=== PATIENT | female | born 1985 | race Caucasian/White ===

== ENCOUNTER 2022-10-05 15:00 | Inpatient (IN) | payer SELFPAY ==
[~2022-10-05] VITALS: Ht 162 cm; Wt 77.9 kg
[2022-10-05] VITALS (11 sets, daily range): BP systolic 129–144; BP diastolic 76–91
[~2022-10-05 15:00] MED LIST: ACET-93 PO; IBUP-844 PO
[2022-10-05] MEDS ORDERED: AMPICILLIN FOR IV USE 2,000 MG in NS (IVPB) 50 ML IV SCH (15:02)
--- NOTE | 2022-10-05 15:13 | History & Physical-OB ---
OB - Chief Complaint & HPI Date/Time Date of Admission: Date of Admission: Oct 05, 2022 at 15:00 Date seen by a Provider: Oct 05, 2022 Time Seen by a Provider: 15:00 Chief Complaint/History OB-Reason for Admission/Chief: Onset of Labor Hx : 10 Hx Para: 7 Expected Date of Delivery: Oct 17, 2022 Gestational Age in Weeks: 38 Gestational Age in Days: 2 Allergies and Home Medications Allergies Coded Allergies: No Known Drug Allergies (Unverified , 07/29/21) Patient Home Medication List Home Medication List Reviewed: Yes Acetaminophen (Acetaminophen) 500 Mg Tablet, 1,000 MG PO Q6HR Prescribed by: Romana Hare on 07/30/21 104 Last Action: Reviewed Ibuprofen (Ibu) 600 Mg Tablet, 600 MG PO Q6H Prescribed by: Romana Hare on 07/30/211043 Last Action: Reviewed OB - History Hx of Present Care: Yes Ultrasounds: Normal mid trimester US Obstetrical Complications: None Medical Complications: None Information Induced Hypertension: No Maternal Gestational Diabetes: No Hemorrhage: No Obstetrical History Hx : 10 Hx Para: 7 Hx # Term Pregnancies: 7 Hx # Pregnancies: 0 Number of Living Children: 7 Hx Termination: No Hx Total # of Abortions (Spona: 2 Hx Multiple Gestation: No Hx Ectopic : No Hx Stillbirth: No Hx Complication: No Hx Induced Hypertens: No Hx Maternal Gestational Diabet: No Hx Hemorrhage: No Delivery History Hx Dystocia: No Hx Forceps Assisted Delivery: No Hx Vacuum Extraction Assisted: No Hx Placenta Abnormality: No Hx Distress: No Hx Large For Gestational Age I: No Hx Small for Gestational Age I: No Hx Section: No Hx Vaginal Delivery Post C-Sec: No Hx Blood Disorders: No Adverse Rxn to Tranfusion: No Patient Past Medical History none Social History/Family History Alcohol Use: Denies Use Smoking Cessation: Never smoker Immunizations Influenza Vaccine Up-to-Date: No; Not Current Hepatitis A: No Hepatitis B: No Rubella: not immune RPR/VDRL: Negative GBS Status: Positive HBsAG: Negative OB - Admission Exam Physical Exam HEENT: NCAT Heart: Rhythm Normal Lungs: Clear Abdomen: Gravid Extremities: Normal Cervical Dilatation: 5cm Effacement: Other (90%) Station: -1 Membranes: Intact Heart Rate: 140's Accelerations: Accelerations Present Decelerations: No Decelerations Short Term Variability: Present Agriculture Laborer Variability: Average (6-25) Contractions on Admission: 6-10 Minutes Apart Intensity: Mild OB - Assessment/Plan/Diagnosis Assessment Assessment: active labor, group B positive strep Admission Dx IUP# 38w2 labor AMA GBS+ Admission Status: Inpatient Order (span 2 midnights) Reason for Inpatient Admission: IUP @ 38w2d GBS+ Plan Plan: Expectant Management Copy Copies To 1: NORBERT SERVIN VICTORIA A DO Oct 05, 2022 15:13
[2022-10-05] MEDS ORDERED: LIDOCAINE 1% INJ 10 ML VIAL INJ PRN (15:15)
[2022-10-05] MEDS ORDERED: MINERAL OIL 30 ML UDC TOP PRN (15:15)
[2022-10-05] MEDS ORDERED: LIDOCAINE 1% INJ 20 ML VIAL IJ PRN (15:15)
[2022-10-05] MEDS: D5 LR IV SOLUTION 1,000 ML IV SCH (15:40)
[2022-10-05 16:07] LABS: BASOPHILS % (AUTO) 0 % (0-10); EOSINOPHILS # (AUTO) 0.1 10^3/uL (0.0-0.3); EOSINOPHILS % (AUTO) 2 % (0-10); HEMATOCRIT 36 % (35-52); HEMOGLOBIN 11.9 g/dL (11.5-16.0); LYMPHOCYTES # (AUTO) 1.7 10^3/uL (1.0-4.0); LYMPHOCYTES % (AUTO) 20 % (12-44); MEAN CORPUSCULAR HEMOGLOBIN 26 pg (25-34); MEAN CORPUSCULAR HGB CONC 33 g/dL (32-36); MEAN CORPUSCULAR VOLUME 80 fL (80-99); MEAN PLATELET VOLUME 9.4 fL (9.0-12.2); MONOCYTES # (AUTO) 0.6 10^3/uL (0.0-1.0); MONOCYTES % (AUTO) 7 % (0-12); NEUTROPHILS # (AUTO) 6.1 10^3/uL (1.8-7.8); NEUTROPHILS % (AUTO) 71 % (42-75); PLATELET COUNT 210 10^3/uL (130-400); WHITE BLOOD COUNT 8.7 10^3/uL (4.3-11.0)
[2022-10-05] MEDS: AMPICILLIN FOR IV USE 1,000 MG in NS (IVPB) 50 ML IV SCH ×2 (19:33→23:34)
[2022-10-05] MEDS ORDERED: OXYTOCIN PRE-MIX DRIP 500 ML IV ONE (19:35)
--- NOTE | 2022-10-05 20:09 | OB Triage Report ---
Standard Progress Note Progress Notes/Assess & Plan Date Seen by a Provider: Oct 05, 2022 Time Seen by a Provider: 20:00 Expected Date of Delivery: Oct 17, 2022 Gestational Age in Weeks: 38 Gestational Age in Days: 2 LMP/CARROL Comment: Patient still carlito. FHR 158 cat 1 CVX 5-6/90/-1 AROM scant fluid TOCOs Q7-10 min Progress/Assessment & Plan Continue with expectant management MARINE SALDANA DO Oct 05, 2022 20:09
[2022-10-05] MEDS ORDERED: OXYTOCIN PRE-MIX DRIP 500 ML IV SCH (21:45)
[2022-10-05] MEDS ORDERED: CATHETER FLUSH 10 ML SYR IV SCH (22:00)
[2022-10-06] VITALS (20 sets, daily range): BP systolic 128–179; BP diastolic 60–101
[2022-10-06] MEDS: D5 LR IV SOLUTION 1,000 ML IV SCH (00:29)
[2022-10-06] MEDS ORDERED: ONDANSETRON 4 MG/2 ML (SDV) Z0FRAN ONE (00:48)
[2022-10-06] MEDS ORDERED: ONDANSETRON 4 MG/2 ML (SDV) Z0FRAN IVP ONE (01:00)
[2022-10-06] MEDS ORDERED: TRANEXAMIC ACID 100 MG/ML 10 ML INJECTION ONE (01:03)
[2022-10-06] MEDS ORDERED: ACETAMINOPHEN 500 MG TAB (TYLENOL) PO SCH (01:15)
[2022-10-06] MEDS ORDERED: DIBUCAINE 1% OINTMENT 28 GM TUBE TOP PRN (01:15)
[2022-10-06] MEDS ORDERED: BENZOCAINE/MENTHOL (DERMOPLAST) 56 ML CAN TP PRN (01:15)
[2022-10-06] MEDS ORDERED: WITCH HAZEL(TUCKS) 40 EA JAR TOP PRN (01:15)
[2022-10-06] MEDS ORDERED: NALOXONE 0.4 MG/ML 1 ML (NARCAN) VIAL IV PRN (01:15)
[2022-10-06] MEDS ORDERED: IBUPROFEN 800 MG (MOTRIN) TAB PO SCH (01:15)
[2022-10-06] MEDS ORDERED: MEASLES,MUMPS,RUBELLA 1 EA INJ SQ ONE (01:15)
[2022-10-06] MEDS ORDERED: OXYTOCIN PRE-MIX DRIP 500 ML IV SCH (01:15)
[2022-10-06] MEDS ORDERED: TETANUS,DIPTH,PERTUSS P/F (BOOSTRIX) 0.5 ML VIAL IM ONE (01:15)
--- NOTE | 2022-10-06 01:20 | OB Labor & Delivery Record ---
Vag Delivery Note Vag Delivery Note Date of Delivery: 10/06/22 Preoperative Diagnosis: Conchita Kim is a (36 /Para 10 / 7, Gestational Age (wks)[id number] [ ] Postoperative Diagnosis: Same Surgeon: MARINE SALDANA Annual Campaign Manager: [] Anesthesia: none Delivery Type: Spontaneous vaginal delivery Findings: [] Liveborn male , apgars 8/9, weight Pending Lacerations: None Intact placenta with 3 vessel cord. No nuchal cord, body cord or shoulder dystocia Estimated Blood Loss:300 ml Complications: None Condition: Stable Description of Procedure: The patient is a 36 year old female who presented With complaint of contractions. In the office she was 5 cm dilated. She was GBS positive.. She was admitted and informed consent was obtained. Her membranes were ruptured with scant fluid. She is carlito about every 7 to 10 minutes she dilated to 6 cm. Pitocin was started she continued onward until she was complete. She progressed to complete dilatation and began to push. She was then set up for delivery. The infant's head was delivered atraumatically in the FINN position. The shoulders and remainder of the 's body were then delivered without difficulty. Upon delivery, the was vigorous and placed on maternal chest and the mouth and nares were bulb suctioned. After a 60 seconds the cord was doubly clamped and cut and the infant remained on maternal chest. The placenta with 3-vessel cord delivered spontaneously and intact and there was found to be minimal bleeding.~ Vigorous fundal massage was performed and the fundus was found to be firm. IV oxytocin was given. Examination of the vagina and perineum revealedNo lacerations.. All sponge, instrument and needle counts were correct. Mom and baby were both in stable condition in the labor suite.Quantitative blood loss was 300 cc Vitals - Labs Vital Signs - I&O Vital Signs Date Time Temp Pulse Resp B/P (MAP) Pulse Ox O2 Delivery O2 Flow Rate FiO2 10/05/22 19:35 37.0 77 18 129/76 (93) Room Air 10/05/22 15:05 37.2 97 18 96 Room Air Labs Laboratory Tests 10/05/22 15:23: White Blood Count 8.7, Red Blood Count 4.52, Hemoglobin 11.9, Hematocrit 36, Diane n Corpuscular Volume 80, Mean Corpuscular Hemoglobin 26, Mean Corpuscular Hemoglobin Concent 33, Red Cell Distribution Width 15.1H, Platelet Count 210, Mean Platelet Volume 9.4, Immature Granulocyte % (Auto) 1, Neutrophils (%) (Auto) 71, Lymphocytes (%) (Auto) 20, Monocytes (%) (Auto) 7, Eosinophils (%) (Auto) 2, Basophils (%) (Auto) 0, Neutrophils # (Auto) 6.1, Lymphocytes # (Auto) 1.7, Monocytes # (Auto) 0.6, Eosinophils # (Auto) 0.1, Basophils # (Auto) 0.0, Immature Granulocyte # (Auto) 0.1, Syphilis Total Antibody Negative MARINE SALDANA 16, 2023 01:20
[2022-10-06] MEDS ORDERED: DOCU100C37 PO (01:22)
[2022-10-06] MEDS ORDERED: DIBU30OI TOP (01:22)
[2022-10-06] MEDS ORDERED: PNV1TABL67 PO (01:22)
[2022-10-06] MEDS ORDERED: BENZ78AE5 TP (01:22)
[2022-10-06] MEDS ORDERED: WTCHGPD TOP (01:22)
[2022-10-06] MEDS ORDERED: CATHETER FLUSH 10 ML SYR IV SCH (06:00)
[2022-10-06] MEDS ORDERED: PRENATAL VITAMIN 1 EA TAB PO SCH (07:00)
--- NOTE | 2022-10-06 07:41 | Postpartum Progress Note ---
Note Note Day # 1 Subjective: Patient is without complaints. Ambulating, voiding. Tolerating a regular diet without nausea or vomiting. Normal lochia. Pain is well controlled with oral pain medications. . [] Objective: [] Physical Exam: General - Alert and oriented, no apparent distress Breasts are symmetrical no erythema edema or engorgement Abdomen - Soft, appropriately tender to palpation, non-distended, fundus firm at umbilicus Lochia minimal Extremities - no edema, negative Alysha's bilaterally Assessment: [] post- day # 1 status post vaginal delivery. Recovering well, hemodynamically stable Plan: Routine care. Encourage breast feeding. Encourage ambulation. Ferrous sulfate supplementation. Plan for discharge [] Vitals - Labs Vital Signs - I&O Vital Signs Date Time Temp Pulse Resp B/P (MAP) Pulse Ox O2 Delivery O2 Flow Rate FiO2 10/06/22 03:08 78 18 149/73 (98) Room Air 10/06/22 02:53 87 18 131/60 (83) Room Air 10/06/22 02:38 72 18 150/71 (97) Room Air 10/06/22 02:23 78 18 132/68 (89) Room Air 10/06/22 02:08 75 18 149/73 (98) Room Air 10/06/22 01:53 76 18 148/72 (97) Room Air 10/06/22 01:38 75 18 147/86 (106) Room Air 10/06/22 01:25 36.6 80 18 129/60 (83) Room Air 10/06/22 01:10 97 18 142/76 (98) Room Air 10/06/22 01:09 91 18 179/77 (111) Room Air 10/06/22 01:00 90 18 178/93 (121) Room Air 10/06/22 00:45 79 18 161/70 (100) Room Air 10/06/22 00:30 79 18 149/101 (117) Room Air 10/06/22 00:15 85 18 141/91 (108) Room Air 10/06/22 00:00 81 18 153/84 (107) Room Air 10/05/22 23:45 76 18 138/87 (104) Room Air 10/05/22 23:30 75 18 144/91 (108) Room Air 10/05/22 23:15 78 18 138/83 (101) Room Air 10/05/22 23:00 75 18 133/79 (97) Room Air 10/05/22 22:45 74 18 144/83 (103) Room Air 10/05/22 22:30 78 18 131/84 (100) Room Air 10/05/22 22:15 73 18 135/82 (99) Room Air 10/05/22 21:55 74 18 137/79 (98) Room Air 10/05/22 21:30 36.4 85 18 141/81 (101) Room Air 10/05/22 19:35 37.0 77 18 129/76 (93) Room Air 10/05/22 15:05 37.2 97 18 96 Room Air I & O 10/06/22 07:00 Intake Total 1600 ml Balance 1600 ml Labs Laboratory Tests 10/05/22 15:23: White Blood Count 8.7, Red Blood Count 4.52, Hemoglobin 11.9, Hematocrit 36, Mean Corpuscular Volume 80, Mean Corpuscular Hemoglobin 26, Mean Corpuscular Hemoglobin Concent 33, Red Cell Distribution Width 15.1H, Platelet Count 210, Mean Platelet Volume 9.4, Immature Granulocyte % (Auto) 1, Neutrophils (%) (Auto) 71, Lymphocytes (%) (Auto) 20, Monocytes (%) (Auto) 7, Eosinophils (%) (Auto) 2, Basophils (%) (Auto) 0, Neutrophils # (Auto) 6.1, Lymphocytes # (Auto) 1.7, Monocytes # (Auto) 0.6, Eosinophils # (Auto) 0.1, Basophils # (Auto) 0.0, Immature Granulocyte # (Auto) 0.1, Syphilis Total Antibody Negative MARINE SALDANA 16, 2023 07:41
[2022-10-06] MEDS ORDERED: DOCUSATE SODIUM 100 MG (COLACE) CAP PO SCH (09:00)
[2022-10-06] MEDS ORDERED: FERROUS SULF 325 MG (IRON) TAB PO SCH (09:00)
[2022-10-07 05:44] LABS: BASOPHILS # (AUTO) 0.1 10^3/uL (0.0-0.1); BASOPHILS % (AUTO) 1 % (0-10); EOSINOPHILS # (AUTO) 0.4 10^3/uL (0.0-0.3); EOSINOPHILS % (AUTO) 3 % (0-10); HEMATOCRIT 38 % (35-52); HEMOGLOBIN 12.5 g/dL (11.5-16.0); LYMPHOCYTES % (AUTO) 35 % (12-44); MEAN CORPUSCULAR HEMOGLOBIN 27 pg (25-34); MEAN CORPUSCULAR HGB CONC 33 g/dL (32-36); MEAN CORPUSCULAR VOLUME 80 fL (80-99); MEAN PLATELET VOLUME 9.3 fL (9.0-12.2); MONOCYTES # (AUTO) 0.7 10^3/uL (0.0-1.0); MONOCYTES % (AUTO) 6 % (0-12); NEUTROPHILS # (AUTO) 6.3 10^3/uL (1.8-7.8); NEUTROPHILS % (AUTO) 55 % (42-75); PLATELET COUNT 221 10^3/uL (130-400); WHITE BLOOD COUNT 11.5 10^3/uL (4.3-11.0)
[2022-10-07 05:53] VITALS: BP 136/83
[2022-10-07 08:10] VITALS: BP 140/81
--- NOTE | 2022-10-07 08:27 | Short Stay Summary ---
Discharge Summary Hospital Course Final Diagnosis: Term , Vaginal Delivery Hospital Course Date of Admission: Oct 05, 2022 at 15:00 Admission Diagnosis : Family Physician/Provider: Date of Discharge: 10/07/22 Discharge Diagnosis: Term , Vaginal delivery Hospital Course: Uncomplicated vaginal delivery 10/06/22. Discharged home the next day. Labs and Pending Lab Test: Laboratory Tests 10/07/22 05:21: White Blood Count 11.5H, Red Blood Count 4.68, Hemoglobin 12.5, Hematocrit 38, Mean Corpuscular Volume 80, Mean Corpuscular Hemoglobin 27, Mean Corpuscular Hemoglobin Concent 33, Red Cell Distribution Width 15.8H, Platelet Count 221, Mean Platelet Volume 9.3, Immature Granulocyte % (Auto) 1, Neutrophils (%) (Auto) 55, Lymphocytes (%) (Auto) 35, Monocytes (%) (Auto) 6, Eosinophils (%) (Auto) 3, Basophils (%) (Auto) 1, Neutrophils # (Auto) 6.3, Lymphocytes # (Auto) 4.0, Monocytes # (Auto) 0.7, Eosinophils # (Auto) 0.4H, Basophils # (Auto) 0.1, Immature Granulocyte # (Auto) 0.1 Home Meds Active Acetaminophen 500 Mg Tablet 1,000 Mg PO Q6HR 10 Days Ibu (Ibuprofen) 600 Mg Tablet 600 Mg PO Q6H 10 Days Assessment/Pt Instructions Routine instructions. No strenuous activity, sex for 6 weeks. Discharge Instructions Discharge Diet: No Restrictions Activity as Tolerated: Yes Discharge Physical Examination General Appearance: Alert HEENT: Atraumatic Abdominal: Soft Extremities: No Clubbing, No Tenderness/Swelling Skin: No Rashes Neuro: Normal Gait Psych/Mental Status: Mental Status NL Allergies: Coded Allergies: No Known Drug Allergies (Unverified , 07/29/21) Discharge Summary Date of Admission Oct 05, 2022 at 15:00 Date of Discharge 10/07/22 Discharge Date: Oct 07, 2022 Discharge Time: 08:20 Admission Diagnosis Term Labor Vaginal Delivery Consults/Procedures Procedures Vaginal Delivery Discharge Diagnosis Term labor Vaginal Delivery MARYANN ROSE Oct 07, 2022 08:23
== END 2022-10-07 09:10 | disposition home or self-care (01) | DRG 807 ==
LOC: LDRP 15:00
PROVIDERS: ADMIT Obstetrics & Gynecology; ATTEND Obstetrics & Gynecology
PROC: 10E0XZZ Delivery of Products of Conception, External Approach (ICD-10-PCS; principal; 2022-10-06)
DX: O99.824 Streptococcus B carrier state complicating childbirth (principal); Z37.0 Single live birth; Z3A.38 38 weeks gestation of pregnancy
CPT/HCPCS: 36415; 85025; 86780; 86850; 86900; 86901